=== PATIENT | male | born 1945 | race Caucasian/White ===

== ENCOUNTER 2023-04-16 09:31 | Emergency (ER) | payer OTHER, SELFPAY ==
[2023-04-16] VITALS (20 sets, daily range): BP systolic 163–222; BP diastolic 79–116; PULSE 86–91; RESP 15–29; TEMP 36.8; O2SAT 91–98
--- NOTE | 2023-04-16 09:36 | DI.CT.S_ITS ---
PROCEDURE: CT STROKE INDICATIONS: sudden onset facial weakness/speech TECHNIQUE: Noncontrast 4.5 mm thick angled axial sections acquired from the foramen magnum to the vertex, with coronal reformats. For radiation dose reduction, the following was used: automated exposure control, adjustment of mA and/or kV according to patient size. COMPARISON: None. FINDINGS: CSF spaces: Basal cisterns are patent. No extra-axial fluid collections. The ventricles are symmetric in size and shape. Brain: No intracranial bleeds or masses. There is cerebral volume loss for age, with resultant ventricular and sulcal prominence. There are periventricular and deep white matter chronic small vessel ischemic changes. There is intracranial internal carotid artery atherosclerosis. Skull and face: Calvarium and visualized facial bones appear intact, without suspicious lesions. Sinuses: Visualized sinuses and mastoids are clear. IMPRESSION: No intracranial hemorrhage or other acute intracranial abnormality. This study fulfills neurological imaging criteria for inclusion or exclusion of acute stroke therapies based on available published neurological guidelines. Dictated by: Octavio Bailey M.D. on 04/16/2023 at 9:48 Approved by: Octavio Bailey M.D. on 04/16/2023 at 9:54
--- NOTE | 2023-04-16 09:37 | DI.CT.S_ITS ---
PROCEDURE: CT ANGIO HEAD AND NECK INDICATIONS: sudden onset facial weakness/speech TECHNIQUE: After the administration of intravenous contrast, 1 mm thick sections acquired from the aortic arch through the [place] of [place]. 3-dimensional pmjeprd-msvljxfay-wjztenhvga (MIP) and/or volume rendering reformats were acquired of the central intracranial vasculature and neck separately. For radiation dose reduction, the following was used: automated exposure control, adjustment of mA and/or kV according to patient size. COMPARISON: None. FINDINGS: Image quality: Diagnostic. BRAIN: Limited evaluation of the brain secondary to protocol for CT a. Atrophy and chronic microvascular ischemic changes are present. No visualized acute hemorrhage. No midline shift. HEAD CT ANGIOGRAPHY: Anterior circulation: Ttff-sd-rvomgnrm bilateral supraclinoid internal carotid artery stenosis is present secondary to calcifications. The flow within the paired anterior cerebral arteries is normal and symmetric. The flow within the middle cerebral arteries is normal and symmetric. The anterior communicating artery is seen. No aneurysms are seen. Posterior circulation: Left vertebral artery dominance Visualized portions of the vertebral arteries demonstrate normal caliber, and join to form a normal appearing basilar artery. Flow within the posterior cerebral arteries is normal and symmetric. No aneurysms are seen. 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 The origins of the common carotid arteries appear patent. The common carotid arteries demonstrate normal caliber and courses. The bifurcation regions are both widely patent. There are calcifications at the origin of the internal carotid arteries bilaterally. There is less than 50% narrowing bilaterally. Posterior circulation: The origins of the vertebral arteries both appear widely patent. The more superior extracranial portions of both vertebral arteries also demonstrate normal courses and calibers. They join to form a normal appearing basilar artery. Soft tissues: Visualized neck soft tissues demonstrate no suspicious abnormalities. Bones: No suspicious bony lesions. Visualized cervical spine appears normally aligned. IMPRESSION: 1. No acute intracranial process. 2. Mild to moderate atrophy and chronic microvascular ischemic changes. 3. No areas of hemodynamically significant stenosis, vascular occlusion or aneurysmal dilation within the anterior circulation. 4. No areas of hemodynamically significant stenosis, vascular occlusion or aneurysmal dilation within the posterior circulation. 5. Calcification is present the origin of the internal carotid arteries bilaterally with less than 50% stenosis. Supraclinoid stenosis, sugu-lg-[id number] is present bilaterally. Any quantitative measurements of stenosis were performed using NASCET criteria. Dictated by: Saray Bearden M.D. on 04/16/2023 at 10:30 Approved by: Saray Bearden M.D. on 04/16/2023 at 10:34
[2023-04-16 09:46] LABS: Add Manual Diff / Slide Review NO; Basophils Absolute Auto 100 /uL (0-100); Basophils Percent Auto 0.6 % (0-2); Eosinophils Absolute Auto 100 /uL (0-450); Hematocrit 48.1 % (41-53); Hemoglobin 16.6 g/dL (13.5-17.5); Lymphocytes Absolute Auto 2100 /uL (1100-4500); Lymphocytes Percent Auto 22.9 % (25-40); Mean Corpuscular HGB Conc 34.5 % (30-36); Mean Corpuscular Hemoglobin 31.7 PG (26-34); Monocytes Absolute Auto 600 /uL (0-900); Monocytes Percent Auto 6.2 % (3-14); Neutrophils Absolute Auto 6500 /uL (1500-7000); Neutrophils Percent Auto 69.3 % (50-75); Platelet Count 130 X10^3/uL (150-400); Red Blood Cell Count 5.23 X10^6/uL (4.5-5.9); Red Cell Distribution Width 13.8 % (11.6-14.8); White Blood Cell Count 9.3 X10^3/uL (4.5-11.0)
--- NOTE | 2023-04-16 09:50 | ED.NEUROSD ---
HPI - Neuro Symptoms/Deficit General Chief Complaint: Neuro Symptoms/Deficit Stated Complaint: poss stroke Time Seen by Provider: 04/16/23 09:36 Source: patient and family Mode of arrival: Wheelchair History of Present Illness HPI Narrative: 77-year-old male nonsmoker with history of hypertension, hyperlipidemia, diabetes presents with family in the chief complaint of neurologic symptoms consistent with stroke. His last normal was 820 this morning, he was sitting on the porch with his daughter having a cup of coffee talking when he started developing some slurring of speech along with facial droop. He developed some dizziness, nausea and drooling. He was having some trouble with the left arm and leg as well, daughter said this looks like a stroke and brought him here. He was activated as a code stroke and taken directly to CT scan. On Anticoagulants: No (asa) Related Data Allergies Allergy/AdvReac Type Severity Reaction Status Date / Time No Known Drug Allergies Allergy Verified 04/16/23 09:38 Review of Systems Review of Systems Narrative: GENERAL: Denies chills, fatigue, malaise, fever, sweats. HEENT: Denies sinus pain, ear pain, sore throat, difficulty swallowing, dizziness. RESPIRATORY: Denies dyspnea, cough, wheezing, hemoptysis, sputum. CARDIOVASCULAR: Denies chest pain, palpitations, orthopnea, edema, GASTROINTESTINAL: Denies nausea, vomiting, abdominal pain, diarrhea, constipation, melena. : Denies dysuria, frequency, incontinence, hematuria, urinary retention. MUSCULOSKELETAL: denies weakness, joint pain, or bony pain SKIN: Denies rash, skin lesions, or other NEUROLOGIC: See HPI PSYCHIATRIC: No concerning psychosocial issues. 12 point review of systems is negative except for those stated above Hematologic/Lymphatic On Anticoagulants: No (asa) Patient History Social History Smoking Status: Unknown if ever smoked Smoking Status: Unknown if ever smoked alcohol intake frequency: other Substance Use Type: does not use Exam Narrative Exam Narrative: GENERAL: [77] year old patient appears stated age. Well-developed patient, in mild distress. HEAD: Atraumatic. Normocephalic. EYES: Pupils equal round and reactive. Extraocular motions intact. No scleral icterus. No injection or drainage. ENT: Nose without bleeding, purulent drainage. Throat without erythema, tonsillar hypertrophy or exudate. Airway patent. NECK: Trachea midline. Non tender CARDIOVASCULAR: Regular rate and rhythm without murmurs, gallops, or rubs. RESPIRATORY: Clear to auscultation. Breath sounds equal bilaterally. No wheezes, rales, or rhonchi. GASTROINTESTINAL: Abdomen soft, non-tender, nondistended. EXTREMITIES: No edema or joint tenderness. BACK: Nontender without deformity or crepitance. No flank tenderness. NEURO:CNII-XII grossly in tact SKIN: No rash or erythema of visible areas Initial Vital Signs Initial Vital Signs: Vital Signs Temperature 98.2 F 04/16/23 09:31 Pulse Rate 87 04/16/23 09:31 Respiratory Rate 15 04/16/23 09:31 Blood Pressure 220/98 H 04/16/23 09:31 Pulse Oximetry 96 04/16/23 09:31 Oxygen Delivery Method Room Air 04/16/23 09:31 Scores NIH Stroke Scale Level of Conciousness: Alert, keenly responsive Ask month/age: Answers both questions correctly. Open/close eyes, close hand: Performs both tasks correctly Best gaze horizontal: Normal Visual messer: No visual loss Facial palsy: Minor paralysis, flattened nasolabial fold, asymmetry on smiling Left arm drift: Drifts down, not to bed Right arm drift: No drift for full 10 sec Left leg drift: No drift for full 5 sec Right leg drift: No drift for full 5 sec Limb ataxia: Present in one limb Sensory on face/arms/legs: Mild to moderate sensory loss, can tell touch Best language: No aphasia, normal Dysarthria: Mild to mod,some slurring Extinction or inattention: No abnormality Total NIH Stroke scale score: 5 Course Course Course Narrative: tPA Contraindications for Ischemic Stroke from [employer] on 04/16/2023 All calculations should be rechecked by clinician prior to use RESULT SUMMARY: Patient eligible for tPA. INPUTS: Age >=8 ?> 1 = Yes Clinical diagnosis of ischemic stroke causing neurological deficit ?> 1 = Yes Time of symptom onset ?> 1 = Yes Intracranial hemorrhage on CT ?> 0 = No Clinical presentation suggests subarachnoid hemorrhage ?> 0 = No Neurosurgery, head trauma, or stroke in past 3 months ?> 0 = No Uncontrolled hypertension (>185 mmHg SBP or >110 mmHg DBP) ?> 0 = No History of intracranial hemorrhage ?> 0 = No Known intracranial arteriovenous malformation, neoplasm, or aneurysm ?> 0 = No Active internal bleeding ?> 0 = No Suspected/confirmed endocarditis ?> 0 = No Known bleeding diathesis ?> 0 = No Abnormal blood glucose ( ?> 0 = No Only minor or rapidly improving stroke symptoms ?> 0 = No Major surgery or serious non-head trauma in the previous 14 days ?> 0 = No History of gastrointestinal or urinary tract hemorrhage within 21 days ?> 0 = No Seizure at stroke onset ?> 0 = No Recent arterial puncture at a noncompressible site ?> 0 = No Recent lumbar puncture ?> 0 = No Post myocardial infarction pericarditis ?> 0 = No ?> 0 = No Age >80 years ?> 0 = No History of prior stroke and diabetes ?> 0 = No Any active anticoagulant use (even with INR ?> 0 = No NIHSS >25 ?> 0 = No CT shows multilobar infarction (hypodensity >1/3 cerebral hemisphere) ?> 0 = No tPA (Tissue Plasminogen Activator) Dosing for Stroke Calculator from [employer] on 04/16/2023 All calculations should be rechecked by clinician prior to use RESULT SUMMARY: 9.0 mg Bolus dose, given IV over 1 min 80.8 mg Infusion, given IV over 60 mins 10.2 mg Waste, to be discarded INPUTS: Weight ?> 99.79 kg Orders Ordered: Discontinued Medications Alteplase, Recombinant (Activase) 9 mg in 9 mls @ 540 mls/hr 0.09 mg/kg (9 mg) IV NOW ONE Stop: 04/16/23 09:49 Last Infusion: 04/16/23 10:11 Dose: 0 mls/hr Documented By: Admin: 04/16/23 10:10 Dose: 540 mls/hr Documented By: CTS Alteplase, Recombinant (Activase) 80.8 mg in 80.8 mls @ 80.8 mls/hr 0.81 mg/kg (80.8 mg) IV NOW ONE Stop: 04/16/23 10:47 Last Infusion: 04/16/23 11:10 Dose: 0 mls/hr Documented By: Infusion: 04/16/23 10:53 Dose: 0 mls/hr Documented By: Admin: 04/16/23 10:11 Dose: 80.8 mls/hr Documented By: CTS Labetalol HCl (Labetalol 20 Mg/4 Ml Syringe) 20 mg IV NOW ONE Stop: 04/16/23 09:49 Last Admin: 04/16/23 11:53 Dose: Not Given Documented By: CTS Consultations Consultation #1: call to Stroke, we have discussed case, agree with plan to mix, administer TPA, wish to pull up telestroke cart. Time: 09:50 Vital Signs Vital signs: Vital Signs - 8 hr 04/16/23 09:31 04/16/23 09:46 04/16/23 09:47 Temperature 98.2 F Pulse Rate 87 91 H Respiratory Rate 15 Blood Pressure 220/98 H Pulse Oximetry 96 91 96 Oxygen Delivery Method Room Air 04/16/23 09:47 04/16/23 09:50 04/16/23 09:50 Temperature Pulse Rate 89 Respiratory Rate 23 Blood Pressure 222/92 H 194/86 H Pulse Oximetry 93 Oxygen Delivery Method 04/16/23 10:00 04/16/23 10:00 04/16/23 10:11 Temperature Pulse Rate 90 Respiratory Rate 27 H Blood Pressure 166/80 H 174/116 H Pulse Oximetry 97 Oxygen Delivery Method 04/16/23 10:11 04/16/23 10:15 04/16/23 10:17 Temperature Pulse Rate 88 87 91 H Respiratory Rate 27 H 25 H 23 Blood Pressure Pulse Oximetry 96 94 96 Oxygen Delivery Method 04/16/23 10:17 04/16/23 10:20 04/16/23 10:20 Temperature Pulse Rate 89 Respiratory Rate 24 Blood Pressure 177/92 H 177/92 H Pulse Oximetry 95 Oxygen Delivery Method 04/16/23 10:30 04/16/23 10:30 04/16/23 10:40 Temperature Pulse Rate 89 Respiratory Rate 25 H Blood Pressure 185/97 H 183/87 H Pulse Oximetry 98 Oxygen Delivery Method 04/16/23 10:40 04/16/23 10:45 04/16/23 10:50 Temperature Pulse Rate 86 89 90 Respiratory Rate 21 24 29 H Blood Pressure Pulse Oximetry 97 98 97 Oxygen Delivery Method 04/16/23 10:50 04/16/23 10:54 04/16/23 10:54 Temperature Pulse Rate 87 Respiratory Rate 21 Blood Pressure 181/85 H 181/86 H Pulse Oximetry 97 Oxygen Delivery Method MDM - Neuro Symptoms/Deficit Lab Data 04/16/23 09:35 04/16/23 09:35 Labs: Lab Results 04/16/23 04/16/23 04/16/23 Range/Units 09:35 09:35 09:35 WBC 9.3 (4.5-11.0) X10^3/uL RBC 5.23 (4.5-5.9) X10^6/uL Hgb 16.6 (13.5-17.5) g/dL Hct 48.1 (41-53) % MCV 92.0 (80-100) fL MCH 31.7 (26-34) PG MCHC 34.5 (30-36) % RDW 13.8 (11.6-14.8) % Plt Count 130 L (150-400) X10^3/uL Neut % (Auto) 69.3 (50-75) % Lymph % (Auto) 22.9 L (25-40) % [place] % (Auto) 6.2 (3-14) % Eos % (Auto) 1.0 L (2-4) % Baso % (Auto) 0.6 (0-2) % Neut # (Auto) 6500 (0381-9098) /uL Lymph # (Auto) 2100 (8169-0560) /uL [place] # (Auto) 600 (0-900) /uL Eos # (Auto) 100 (0-450) /uL Baso # (Auto) 100 (0-100) /uL PT 10.4 (10.1-12.7) SECONDS INR 0.9 (0.9-1.3) APTT 30 (26-36) SECONDS Sodium 138 (137-145) mmol/L Potassium 4.4 (3.4-5.1) mmol/L Chloride 106 (98-107) mmol/L Carbon Dioxide 21 L (22-32) mmol/L BUN 22 H (9-20) mg/dL Creatinine 1.06 (0.66-1.25) mg/dL Estimated GFR > 60 (>60) mL/min BUN/Creatinine Ratio 20.8 (6-22) Glucose 202 H (80-110) mg/dL Calcium 9.5 (8.4-10.2) mg/dL Total Bilirubin 0.7 (0.2-1.3) mg/dL AST 27 (17-59) IU/L ALT 28 (<50) IU/L Alkaline Phosphatase 68 (38-126) U/L Total Creatine Kinase 86 (55-170) U/L Troponin I < 0.012 (0.01-0.034) ng/mL Total Protein 7.2 (6.3-8.2) g/dL Albumin 4.3 (3.5-5.0) g/dL Globulin 2.9 (1.7-4.1) g/dL Albumin/Globulin Ratio 1.5 (1.0-2.8) Ethyl Alcohol < 10 ( - 10) mg/dL SARS-CoV-2 (PCR) (Negative) 04/16/23 Range/Units 09:51 WBC (4.5-11.0) X10^3/uL RBC (4.5-5.9) X10^6/uL Hgb (13.5-17.5) g/dL Hct (41-53) % MCV (80-100) fL MCH (26-34) PG MCHC (30-36) % RDW (11.6-14.8) % Plt Count (150-400) X10^3/uL Neut % (Auto) (50-75) % Lymph % (Auto) (25-40) % [place] % (Auto) (3-14) % Eos % (Auto) (2-4) % Baso % (Auto) (0-2) % Neut # (Auto) (6643-6717) /uL Lymph # (Auto) (7409-9426) /uL [place] # (Auto) (0-900) /uL Eos # (Auto) (0-450) /uL Baso # (Auto) (0-100) /uL PT (10.1-12.7) SECONDS INR (0.9-1.3) APTT (26-36) SECONDS Sodium (137-145) mmol/L Potassium (3.4-5.1) mmol/L Chloride (98-107) mmol/L Carbon Dioxide (22-32) mmol/L BUN (9-20) mg/dL Creatinine (0.66-1.25) mg/dL Estimated GFR (>60) mL/min BUN/Creatinine Ratio (6-22) Glucose (80-110) mg/dL Calcium (8.4-10.2) mg/dL Total Bilirubin (0.2-1.3) mg/dL AST (17-59) IU/L ALT (<50) IU/L Alkaline Phosphatase (38-126) U/L Total Creatine Kinase (55-170) U/L Troponin I (0.01-0.034) ng/mL Total Protein (6.3-8.2) g/dL Albumin (3.5-5.0) g/dL Globulin (1.7-4.1) g/dL Albumin/Globulin Ratio (1.0-2.8) Ethyl Alcohol ( - 10) mg/dL SARS-CoV-2 (PCR) Negative (Negative) Point of Care Testing Glucose POC 197 MDM Narrative Medical decision making narrative: 77-year-old male presents with sudden onset of stroke-like symptoms including facial weakness, speech deficit as well as numbness, tingling and some minor measurable weakness of left upper and lower extremity is found to be a tPA candidate, we have been in close consultation with the [facility] stroke center who sure the opinion of the need to intervene. Bolus started at 10:10 a.m. followed immediately by infusion which was stopped 7 minutes early given some right nasal bleeding. Due to an abnormal appearance on CT angiogram they request that he be transported as rapidly as possible for the possibility of an intervention, [facility] contacted for this transport. Patient and family understand and agree with the diagnosis and plan. Dr. Martinez and Otoniel were involved in teleheath visit and recommendations Critical Care Time Critical Care Time Critical Care Time: Yes Total Critical Care Time: 30 Attestation: Critical Care Time [30] minutes: Critical care time is separate from other billable procedures. This critical care time includes consultation with family and other consulting doctors, review of records, and interpretation of data from labs, EKGs, imaging, etc. Discharge Plan Departure Patient Disposition: [facility] Clinical Impression: Cerebrovascular accident Referrals: Miscellaneous,DoctorMD [Primary Care Provider] -
[2023-04-16 09:53] LABS: INR 0.9 (0.9-1.3); Prothrombin Time 10.4 SECONDS (10.1-12.7)
[2023-04-16 09:56] LABS: PTT Partial Thromboplastin Tim 30 SECONDS (26-36)
[2023-04-16 09:59] LABS: Alanine Aminotransferase 28 IU/L (<50); Albumin 4.3 g/dL (3.5-5.0); Albumin Globulin Ratio 1.5 (1.0-2.8); Alkaline Phosphatase 68 U/L (38-126); Aspartate Aminotransferase 27 IU/L (17-59); BUN Creatinine Ratio 20.8 (6-22); Bilirubin Total 0.7 mg/dL (0.2-1.3); Blood Urea Nitrogen 22 mg/dL (9-20); Calcium 9.5 mg/dL (8.4-10.2); Carbon Dioxide 21 mmol/L (22-32); Chloride 106 mmol/L (98-107); Creatine Kinase 86 U/L (55-170); Estimated Glomerular Filt Rate > 60 mL/min (>60); Ethanol (ETOH) < 10 mg/dL; Globulin 2.9 g/dL (1.7-4.1); Glucose 202 mg/dL (80-110); HEMOLYSIS < 15 (0-50); Potassium 4.4 mmol/L (3.4-5.1); Sodium 138 mmol/L (137-145); Total Protein 7.2 g/dL (6.3-8.2)
[2023-04-16 10:09] LABS: Troponin I < 0.012 ng/mL (0.01-0.034)
[2023-04-16 10:09] LABS: COVID19 -Nasal RAPID Negative (Negative)
[2023-04-16] MEDS: ALTEPLASE 9 MG/9 ML VIAL 540 MG IV (10:10)
[2023-04-16] MEDS: ALTEPLASE IV (10:11)
--- NOTE | 2023-04-16 10:21 | PC.NURSE ---
Pt arrives with Daughter, Jayda. Reports she was sitting with pt at 0820 this morning on the porch drinking coffee when she heard some slurring and asked the pt to repeat himself. When he continued to have slurred speech and some drooling with nausea pt came POV to ED. Stroke alert was called overhead. Glucose 197. Dr Jacobson at bedside. Initial NIH 6 for L sided drift, dysarthria, and best language. IV established. Pt taken to and from CT without issue. Initial BP 220/systolic. labetalol ordered. subsequent BP's improved without labetalol administration and labetalol held at this time. additional 2 IV's established due to pt being at Tpa candidate. Telestroke at bedside. Pharmacy in department to mix TPA. Admin started at 1010. Pt tolerating well at this time.
--- NOTE | 2023-04-16 10:55 | PC.NURSE ---
Patient family at bedside came to the nurse station requesting a nurse. Family stated patient began bleeding from right nostril. This RN immediately at bedside. Right nare is spotting blood when tissue is placed at the nare. This RN stopped the alterplace infusion and immediately informed Dr. Jacobson who came and assessed patient at bedside. Patient denied having any blurred vision, or headache. Patient repeat blood pressure was 181/86. Provider had call placed to [facility] stroke team. This RN notified primary RN.
--- NOTE | 2023-04-16 11:35 | PC.NURSE ---
Pt continues with epistaxsis from R nare despite nasal clamping and pressure. Dr Jacobson made aware. Rhino rocket placed in R nare by Dr Jacobson. Pt tolerated well and bleeding controlled. [facility] in route for transfer to outside hospital.
--- NOTE | 2023-04-16 11:45 | PC.NURSE ---
Report given to TANISHA Valenzuela ALPiliW. Care relinquished at this time.
== END 2023-04-16 11:53 | disposition short-term general hospital (02) ==
PROVIDERS: Emergency Provider Emergency Medicine
DX: I63.9 Cerebral infarction, unspecified (principal); R29.705 NIHSS score 5; Z20.822 Contact with and (suspected) exposure to COVID-19
CPT/HCPCS: 36415; 70450; 70496; 70498; 80053; 80320; 82550; 82962; 84484; 85025; 85610; 85730; 87635; 93005; 96365; 99285; 99291; 99292; C9803; J2997; Q9967